=== PATIENT | female | born 1945 | race Caucasian/White ===

== ENCOUNTER → 2016-03-13 | Outpatient (REF) | LOC: WSOH 10:23 | DX: Z02.89 Encounter for other administrative examinations (principal) ==

== ENCOUNTER 2023-12-08 13:19 | Inpatient (IN) | payer MEDICARE ==
[2023-12-08] VITALS (132 sets, daily range): BP systolic 188–256; BP diastolic 93–149; PULSE 111–125; TEMP 98.6; O2SAT 92–98
[~2023-12-08] VITALS: Ht 170.2 cm; Wt 84.3 kg
[2023-12-08 13:56] LABS: BASO # 0.1 K/mm3 (0.0-0.2); BASO % 0.5 % (0.0-2.0); EOS # 0.1 K/mm3 (0.0-0.7); EOS % 0.9 % (0.0-4.0); GRAN # 6.9 K/mm3 (1.4-6.5); GRAN % 62.8 % (42.2-75.2); HEMATOCRIT 47.7 % (37.0-47.0); HEMOGLOBIN 16.1 g/dl (12.5-16.0); LYMPH # 3.3 K/mm3 (1.2-3.4); LYMPH % 30.2 % (20.0-51.0); MEAN CELL VOLUME 87 fl (80.0-100.0); MEAN CORPUSCULAR HEMOGLOBIN 30 pg (27-31); MEAN CORPUSCULAR HGB CONC 34 g/dl (33.0-37.0); MEAN PLATELET VOLUME 9.3 fl (7.4-10.4); MONO # 0.6 K/mm3 (0.1-0.6); MONO % 5.3 % (1.7-9.3); PLATELET COUNT 240 K/mm3 (130-400); RED BLOOD COUNT 5.46 M/mm3 (4.10-5.30); REDCELL DISTRIBUTION WIDTH-CV 12.4 % (11.5-14.5)
[2023-12-08 14:16] LABS: ALBUMIN 4.2 g/dL (3.4-4.8); BILIRUBIN,TOTAL 0.5 mg/dL (0.2-1.2); CREATININE, serum 0.78 mg/dL (0.57-1.11); TOTAL PROTEIN 8.1 g/dl (6.2-8.1)
[2023-12-08 14:25] LABS: TROPONIN-I 0.023 ng/mL (0.00-0.033)
[2023-12-08] MEDS ORDERED: niCARdipine 200 ML IV ONE (15:00)
[2023-12-08] MEDS ORDERED: Iohexol 300 - 100 ML VIAL IV ONE (15:25)
[2023-12-08] MEDS ORDERED: NS 100 ML IV SCH (15:25)
[2023-12-08] MEDS ORDERED: Acetaminophen 325 MG TAB PO PRN (18:15)
[2023-12-08] MEDS ORDERED: hydrALAZINE 20 MG/ML 1 ML VIAL IV PRN (18:30)
[2023-12-08 20:27] LABS: URINE APPEARANCE CLEAR (CLEAR/HAZY); URINE BLOOD TRACE (NEGATIVE); URINE COLOR YELLOW (YELLOW); URINE GLUCOSE NEGATIVE (NEGATIVE); URINE KETONE 1+ (NEGATIVE); URINE NITRATE POSITIVE (NEGATIVE); URINE PROTEIN(semi-quant) 2+ (NEGATIVE); URINE UROBILINOGEN 0.2 E.U/dL (0.2-1.0)
[2023-12-08 20:32] LABS: COLLECTION METHOD CLEAN CATCH
[2023-12-08] MEDS ORDERED: ASPIRIN 81M81 MG/TA2 PO (20:40)
[2023-12-08] MEDS ORDERED: CORICCLDFLU PO (20:43)
[2023-12-08] MEDS ORDERED: Famotidine 20 MG TAB PO SCH (21:00)
[2023-12-09] VITALS (535 sets, daily range): BP systolic 182–205; BP diastolic 78–104; PULSE 94–110; TEMP 97.6–98.1; O2SAT 77–100
[2023-12-09 05:29] LABS: BASO # 0.1 K/mm3 (0.0-0.2); BASO % 0.3 % (0.0-2.0); EOS # 0.1 K/mm3 (0.0-0.7); EOS % 0.6 % (0.0-4.0); GRAN # 10.3 K/mm3 (1.4-6.5); GRAN % 71.2 % (42.2-75.2); HEMATOCRIT 48.2 % (37.0-47.0); LYMPH % 20.5 % (20.0-51.0); MEAN CELL VOLUME 88 fl (80.0-100.0); MEAN CORPUSCULAR HEMOGLOBIN 29 pg (27-31); MEAN CORPUSCULAR HGB CONC 33 g/dl (33.0-37.0); MEAN PLATELET VOLUME 9.5 fl (7.4-10.4); PLATELET COUNT 238 K/mm3 (130-400); RED BLOOD COUNT 5.51 M/mm3 (4.10-5.30); REDCELL DISTRIBUTION WIDTH-CV 12.9 % (11.5-14.5)
[2023-12-09 05:41] LABS: CALCIUM 9.5 mg/dL (8.4-10.2); CREATININE, serum 0.76 mg/dL (0.57-1.11); POTASSIUM 4.4 mEq/L (3.5-4.5)
[2023-12-09] MEDS ORDERED: LR 1,000 ML IV SCH (06:00)
[2023-12-09] MEDS ORDERED: Clopidogrel 75 MG TAB PO SCH (09:00)
[2023-12-09 10:00] LABS: CHOLESTEROL RISK RATIO 4.3
--- NOTE | 2023-12-09 10:00 | NUR ---
custodial worker met with pt to discuss discharge planning. She reports to live alone in [place]. She does not have a PCP. She allowed SW to provide her local PCP list for review and later decide for a follow-up appointment. [facility]. Pt verified Medicare A/B insurance. She reports to be independent with ADLS and uses a [facility] for DME. She does not have a DPOA-HC, only Living Will, but is agreeable to her son, Arvind [phone] being NOK. She has no other children. Pt reports her son does not yet know she is in the hospital and intends to tell him, when the "work up is back." She reports November is a hard month for them as many family memebers and did not want to scare him, as he lives in [place]. SW discussed how PT/OT will wokr with pt and make a reccomendation to ensure she is safe upon discharge. SW discussed options such as home with HH, SNF, or other rehab locations. She verbalized understanding of this. PT/OT pending Discharge Plan: [email or web address]
--- NOTE | 2023-12-09 11:13 | NUR ---
PATIENT A&OX4, DEMEANOR SEEMS TO BE LABILE. SHE WILL BECOME ELATED, AND THEN BECOME ANNOYED IN A SHORT AMOUNT OF TIME. UNSURE IF THIS IS RESIDUAL EFFECTS FROM STROKE, OR IF THIS IS PATIENTS PERSONALITY. OVERALL PLEASANT DEMEANOR, AND SEEMS TO GET ANNOYED WHEN ANYTHING NEEDS TO BE DONE MEDICALLY WITH HER, OTHERWISE VERY PERSONABLE. PATIENT WALKS, IS STEADY ON HER FEET AND USES HER CALL LIGHT. PATIENT IS ORIENTED TO OWN ABILITIES. PATIENT BED IN LOWEST POSITION, CALL LIGHT AND POSSESSIONS IN REACH.
--- NOTE | 2023-12-09 12:16 | NUR ---
REPORT GIVEN TO LEXA WAYNE ON MEDICAL FLOOR. PATIENT LEFT UNIT AT 1200 TO GO TO MRI AND IS TO GO TO ROOM 304 IMMEDIATELY AFTER THE MRI. BELONGS BROUGHT UP TO HER ROOM BY THIS NURSE. TELEBOX [id number] WAS GIVEN TO LEXA WAYNE.
--- NOTE | 2023-12-09 12:30 | NUR ---
Patient arrived to the medical unit, alert and oriented x4. Denies any pain or discomfort. She had the MRI done. BP 184/104 AND [id number].
--- NOTE | 2023-12-09 12:51 | NUR ---
Patient very talkative. States her BP has been high for a long time, but this time it got crazy. ECHO techs arriving.
--- NOTE | 2023-12-09 14:35 | NUR ---
Initial visit; Patient thanked Big Machine Consultant for looking in on her and offering God's blessings. Patient asked for a Rosary which Big Machine Consultant provided and wished her a "get well" message.
[2023-12-09] MEDS ORDERED: cefTRIAXone 1 G in Water For Injection,Sterile 10 ML IV SCH (17:45)
--- NOTE | 2023-12-09 20:00 | NUR ---
Initial shift assessment done- denies pain, neuros are in tact- no weakness to either side, able to walk to the bathroom on her own- steady on feet, denies any numbness or vision changes. VSS except for slighlty high B/P,, they are allowing for higher B/P,s. tele on, has pins/screws to left arm so unable to left that arm and hold it- alert/oriented x4, denies need for HS snack.
[2023-12-09] MEDS ORDERED: Atorvastatin 40 MG TAB PO SCH (21:00)
--- NOTE | 2023-12-09 23:34 | NUR ---
Did call alverto ARIAS regarding b/p 200/96, states only treat if higher than 220 sbp.
[2023-12-10 03:42] VITALS: BP 210/97; PULSE 96; TEMP 98.2
--- NOTE | 2023-12-10 05:47 | NUR ---
has been sleeping well tonight--
[2023-12-10 07:25] LABS: CREATININE, serum 0.79 mg/dL (0.57-1.11); POTASSIUM 4.3 mEq/L (3.5-4.5)
[2023-12-10 07:40] LABS: BASO # 0.1 K/mm3 (0.0-0.2); BASO % 0.7 % (0.0-2.0); EOS # 0.2 K/mm3 (0.0-0.7); EOS % 1.5 % (0.0-4.0); GRAN # 6.1 K/mm3 (1.4-6.5); GRAN % 62.8 % (42.2-75.2); HEMATOCRIT 45.7 % (37.0-47.0); HEMOGLOBIN 15.1 g/dl (12.5-16.0); LYMPH # 2.7 K/mm3 (1.2-3.4); LYMPH % 27.3 % (20.0-51.0); MEAN CELL VOLUME 89 fl (80.0-100.0); MEAN CORPUSCULAR HEMOGLOBIN 29 pg (27-31); MEAN CORPUSCULAR HGB CONC 33 g/dl (33.0-37.0); MEAN PLATELET VOLUME 9.8 fl (7.4-10.4); MONO # 0.7 K/mm3 (0.1-0.6); MONO % 7.3 % (1.7-9.3); PLATELET COUNT 244 K/mm3 (130-400); RED BLOOD COUNT 5.15 M/mm3 (4.10-5.30)
[2023-12-10 08:06] VITALS: BP 171/85; PULSE 97; TEMP 98
--- NOTE | 2023-12-10 08:30 | NUR ---
PATIENT SITTING UP IN BED UPON ENTERING ROOM. MORNING MEDICATIONS ADMINISTERED PER eMAR. PATIENT IS HOPEFUL TO DISCHARGE HOME TODAY. UPDATED ON PLAN OF CARE. DENIES ANY PAIN OR NEEDS AT THIS TIME. WILL CONTINUE TO MONITOR.
--- NOTE | 2023-12-10 10:05 | NUR ---
Follow-up visit; Karuna said she is doing better, she thinks and thanked again for the two Rosaries she gave her yesterday because she couldn't make up her mind which one she wanted. Supply Chain Buyer wished her God's blessings.
[2023-12-10 11:11] VITALS: BP 177/88; PULSE 94; TEMP 98.3
[2023-12-10 12:40] VITALS: BP_SYST 177
[2023-12-10] MEDS ORDERED: amLODIPine 5 MG TAB PO SCH (12:45)
--- NOTE | 2023-12-10 13:24 | NUR ---
ARACELI met with patient to inquire about PCP for discharge follow up. She requested Dr. Elliott at [facility]. Adore was provided this information for follow up appointment. Patient to discharge to home. Discharge plan: Home
[2023-12-10 13:55] VITALS: BP 171/87; PULSE 102
[2023-12-10] MEDS ORDERED: PLAVIX 75MG TAB75 MG PO (14:53)
[2023-12-10] MEDS ORDERED: NORVASC 5MG5 MG/TAB PO (14:54)
[2023-12-10] MEDS ORDERED: ASPIRIN 81M81 MG/TA2 PO (14:54)
[2023-12-10] MEDS ORDERED: LIPITOR 40MG TA40 MG PO (14:54)
--- NOTE | 2023-12-10 15:17 | NUR ---
IV AND TELEMETRY REMOVED.
--- NOTE | 2023-12-10 15:37 | NUR ---
DISCHARGE INSTRUCTIONS REVIEWED, ALL QUESTIONS ANSWERED. PATIENT ESCORTED DOWN TO ER ENTRANCE BY VIA RICHARD STAFF. PATIENT REQUESTED TO WAIT FOR HER RIDE DOWN THERE.
[2023-12-10] MEDS ORDERED: BACTRIM DS 8001 TAB PO (17:45)
== END 2023-12-10 15:38 | disposition home or self-care (01) | DRG 65 ==
LOC: COL.ER 13:19 → ICU 17:52 → MEDICAL 12-09 12:25
PROVIDERS: Physician Assistant; ADMIT Internal Medicine
DX: I63.511 Cerebral infarction due to unspecified occlusion or stenosis of right middle cerebral artery (principal); N39.0 Urinary tract infection, site not specified; E78.5 Hyperlipidemia, unspecified; I10 Essential (primary) hypertension; Z90.710 Acquired absence of both cervix and uterus; G83.24 Monoplegia of upper limb affecting left nondominant side
CPT/HCPCS: J0360; J0696; J2404; J7120; Q9967